=== PATIENT | female | born 1985 | race Caucasian/White ===

== ENCOUNTER 2018-04-16 09:56 | Emergency (ER) | payer MEDICAID, OTHER ==
[2018-04-16 10:10] VITALS: BP 126/75
--- NOTE | 2018-04-16 11:12 | UC ---
Complaint Female HPI - HPI Summary HPI Summary: left flank and right upper quad. pain had a temp of 100. this morning and felt clammy and febrile-- Patient seen at [facility] 2 days ago dx with vaginal yeast and hypokalemia, - History Of Current Complaint Chief Complaint: UCGU Stated Complaint: URINARY ISSUE FEVER Time Seen by Provider: 04/16/18 11:00 Hx Obtained From: Patient Hx Last Menstrual Period: 02/01/18 ?: Yes Onset/Duration: Sudden Onset Timing: Constant Pain Intensity: 3 Pain Scale Used: 0-10 Numeric Aggravating Factor(s): Nothing - Allergies/Home Medications Allergies/Adverse Reactions: Allergies Allergy/AdvReac Type Severity Reaction Status Date / Time carbamazepine [From Tegretol] Allergy Hives Verified 04/16/18 09:58 diazepam [From Valium] Allergy unk Verified 04/16/18 09:59 latex Allergy Rash Verified 04/16/18 09:59 morphine Allergy unk Verified 04/16/18 09:59 phenytoin [From Dilantin] Allergy unk Verified 04/16/18 10:00 Home Medications: Home Medications Enoxaparin(*) [Lovenox(*)] 40 mg SUBCUT Q24HR 04/16/18 [History Confirmed ] PMH/Surg Hx/FS Hx/Imm Hx Previously Healthy: No - Lupus, clotting disorder - Surgical History Surgical History: Yes Surgery Procedure, Year, and Place: APPY-2001. GALLBLADDER-2005. SPHINCTER MUSCLE TO PANCREASE DILATED. TUBAL-2005. TUBAL REVERSAL-2013 - Family History Known Family History: Positive: Hypertension - Social History Occupation: Employed Full-time Lives: With Family Alcohol Use: None Substance Use Type: None Smoking Status (MU): Never Smoked Tobacco Review of Systems Constitutional: Fever, Chills, Fatigue Skin: Negative Eyes: Negative ENT: Negative Respiratory: Negative Cardiovascular: Negative Gastrointestinal: Abdominal Pain Genitourinary: Negative Motor: Negative Neurovascular: Negative Musculoskeletal: Negative Neurological: Negative Psychological: Negative Is Patient Immunocompromised?: No All Other Systems Reviewed And Are Negative: Yes Physical Exam Triage Information Reviewed: Yes Appearance: Ill-Appearing - pale, Pain Distress, Thin Vital Signs: Initial Vital Signs Temp 97.4 F 04/16/18 10:06 Pulse 82 04/16/18 10:06 Resp 18 04/16/18 10:06 BP 126/75 04/16/18 10:06 Pulse Ox 100 04/16/18 10:06 Vital Signs Reviewed: Yes Eye Exam: Other Eyes: Positive: Conjunctiva Clear, Other: - pale ENT Exam: Normal ENT: Positive: Normal ENT inspection, Hearing grossly normal, TMs normal, Uvula midline. Negative: Nasal congestion, Trismus, Muffled voice, Hoarse voice, Dental tenderness, Sinus tenderness Dental Exam: Normal Neck exam: Normal Neck: Positive: Supple, Nontender, No Lymphadenopathy Respiratory Exam: Normal Respiratory: Positive: Chest non-tender, Lungs clear, Normal breath sounds, No respiratory distress, No accessory muscle use Cardiovascular Exam: Normal Cardiovascular: Positive: RRR, No Murmur, Pulses Normal, Brisk Capillary Refill Abdominal Exam: Other Abdomen Description: Positive: No Organomegaly, Soft, CVA Tenderness (L), Other : - RUQ pain. Negative: Distended Bowel Sounds: Positive: Present Musculoskeletal Exam: Normal Musculoskeletal: Positive: Strength Intact, ROM Intact, No Edema Neurological Exam: Normal Neurological: Positive: Alert, Muscle Tone Normal Psychological Exam: Normal Psychological: Positive: Normal Response To Family Skin Exam: Normal Complaint Female Dx - Course Course Of Treatment: will transfer [place] [facility], - Differential Dx/Diagnosis Provider Diagnoses: , RUQ pain, Fever Discharge - Sign-Out/Discharge Documenting (check all that apply): Discharge/Admit/Transfer - Discharge Plan Condition: Fair Disposition: HOME Discharge Disposition Comment: to [facility] Emergency Department for further care Patient Education Materials: (ED), Fever in Adults (ED), Abdominal Pain (ED) Referrals: Gerry Hernández MD [Primary Care Provider] - - Billing Disposition and Condition Condition: FAIR Disposition: Home
== END 2018-04-16 11:20 | disposition home or self-care (01) ==
LOC: UCEAST 09:56
DX: R10.11 Right upper quadrant pain (principal); R50.9 Fever, unspecified; Z33.1 Pregnant state, incidental; M32.9 Systemic lupus erythematosus, unspecified; D68.9 Coagulation defect, unspecified; Z90.49 Acquired absence of other specified parts of digestive tract; Z88.5 Allergy status to narcotic agent; Z88.8 Allergy status to other drugs, medicaments and biological substances; Z91.040 Latex allergy status; Z82.49 Family history of ischemic heart disease and other diseases of the circulatory system
CPT/HCPCS: 81003; 84702; 99211; G0463

== ENCOUNTER 2018-04-16 11:44 | Emergency (ER) | payer OTHER ==
[2018-04-16] MEDS ORDERED: Ondansetron INJ* 2 MG/ML VIAL IV ONE (12:30)
[2018-04-16] MEDS ORDERED: NS 0.9% 1000 ML* 1,000 ML IV ONE (12:30)
[2018-04-16 12:42] LABS: Hematocrit 46 % (35-47); Mean Corpuscular HGB Conc 35 g/dl (31-36); Mean Corpuscular Hemoglobin 33 pg (27-31); Mean Corpuscular Volume 95 fL (80-97); Mean Platelet Volume 7.4 um3 (7.4-10.4); Platelet Count 316 10^3/ul (150-450); Red Blood Count 4.84 10^6/ul (4.0-5.4); Red Cell Distribution Width 13 % (10.5-15); White Blood Count 11.4 10^3/ul (3.5-10.8)
[2018-04-16 12:50] LABS: Urine Appearance Cloudy; Urine Blood Negative (Negative); Urine Color Yellow; Urine Ketones 1+ (Negative); Urine Protein Negative (Negative); Urine Specific Gravity 1.018 (1.010-1.030); Urine Urobilinogen Negative (Negative)
[2018-04-16 13:15] LABS: EGFR Non-African American 121.4 (>60)
[2018-04-16] MEDS ORDERED: Acetaminophen TAB* 325 MG PO ONE (14:05)
--- NOTE | 2018-04-16 15:12 | RAD ---
Indication: Fever. Real-time sonography of the was performed. There is a single intrauterine gestation noted. Estimated crown-rump length is 2.6 cm. Estimated gestational age is 9 weeks 3 days. Estimated date of delivery is November 16, 2018. heart activity is noted at 161 bpm. Amniotic fluid is within normal limits. The right ovary measures 3.3 x 1.2 x 2.6 cm. Left ovary measures 2.6 x 0.8 x 3.0 cm. Doppler interrogation demonstrates flow in both ovaries. IMPRESSION: Single intrauterine gestation with a gestational age of 9 weeks 3 days. Estimated date of delivery is November 16, 2018. heart activity is noted at 161 bpm.
[2018-04-16] MEDS ORDERED: Nitrofurantoin Macrocrystals* 100 MG CAP PO ONE (15:34)
[2018-04-16 15:59] VITALS: BP 112/66
--- NOTE | 2018-04-18 13:21 | ED ---
Progress - Progress Note Progress Note: Patient's culture results are negative for Claire and positive for Gardnerella. Her urine culture is also negative for growth. Pt aware to stop macrobid. She is 9 weeks and was seen in the ED for pelvic pain which is when cx' s were taken. She had been placed on to terconazole by her [facility] over the phone prior to ED without an exam for suspected yeast infection (patient was upset about this and she felt like she had BV and asked for an appointment but was denied - admits to h/o BV and yeast). She reports she stopped taking terconazole because she thought it was causing cramping. I advised that she does not need to continue this as she does not have a yeast infection per her gentinal cx swab here in ED. Her pelvic exam was also unremarkable for yeast infection. We did discuss that she has a bacterial vaginosis (Gardnerella). This may be causing her cramping sx and will be treated with clindamycin vaginally as she is however she reports she is on progesterone to help support her (has had 4 miscarriages). With pt's permission, called [facility] [phone] HAMIDA Reyes'S nurse. Amy is aware of patient's updated cx findings, med adjustments and desire to start clindamycin vaginal for BV - request for clearance from OB. Amy states she will note culture results and will relay message to the OB inquiring if clindamycin is safe to take with progesterone for this patient to treat her BV. She is also aware pt is upset about her care - Amy states "she spoke with a new nurse who doesn't know her". Pt reports she spoke w/ many nurses and the OB himself, all who told her not to worry, no she couldn't have an appt and start terconazole. Inquired if pt is a problem pt - nurse replied no but that she does call frequently w/ concerns and can be emotional - recognizes that she may need more attention given her hx. Awaiting call from [facility] for recommendation re: clindamycin tx. Pt reports she is not bleeding or having contractions at this time. U/S when seen here was normal w/ FHR of 161. She is aware of danger s/sx of when to return to ED. Course/Dx - Diagnoses Provider Diagnoses: Dysuria Discharge - Sign-Out/Discharge Documenting (check all that apply): Post-Discharge Follow Up - Discharge Plan Condition: Stable Disposition: HOME Prescriptions: Nitrofurantoin Monohyd/M-Cryst [Macrobid 100 mg Capsule] 100 mg PO BID #14 cap Patient Education Materials: Dysuria (ED) Referrals: Gerry Hernández MD [Primary Care Provider] - 2 Days Yonathan Purdy MD [Medical Doctor] - 2 Days Additional Instructions: Return to the ED for any new or worsening symptoms. - Billing Disposition and Condition Condition: STABLE Disposition: Home
--- NOTE | 2018-04-19 08:40 | ED ---
Song Andrews Stephanie, scribed for Bandar Schulz MD on 04/16/18 at 1237 . Complex/Multi-Sys Presentation - HPI Summary HPI Summary: The pt is a 32 y/o F presenting to the ED with c/o vaginal discharge that began a few days ago. The pt went to urgent care for concerns of UTI or yeast infection. The pt is 9 weeks . A few days ago when these sx arose she went to [facility] who did US and said baby was fine but that there was a blood clot in her uterus. Pt was placed on meds for yeast infection. Today she developed fevers and abd pain. She reports labial itching. - History Of Current Complaint Chief Complaint: EDAbdPain Time Seen by Provider: 04/16/18 12:18 Hx Obtained From: Patient Onset/Duration: Gradual Onset, Lasting Days, Still Present Timing: Constant Severity Currently: Mild Associated Signs And Symptoms: Positive: Abdominal Pain, Fever, Other - vaginal discharge - Allergies/Home Medications Allergies/Adverse Reactions: Allergies Allergy/AdvReac Type Severity Reaction Status Date / Time carbamazepine [From Tegretol] Allergy Hives Verified 04/16/18 11:53 diazepam [From Valium] Allergy unk Verified 04/16/18 11:53 latex Allergy Rash Verified 04/16/18 11:53 morphine Allergy unk Verified 04/16/18 11:53 phenytoin [From Dilantin] Allergy unk Verified 04/16/18 11:53 PMH/Surg Hx/FS Hx/Imm Hx Sensory History: Denies: Hx Legally Blind EENT History: Denies: Hx Deafness Neurological History: Reports: Hx Seizures - Surgical History Surgery Procedure, Year, and Place: APPY-2001. GALLBLADDER-2005. SPHINCTER MUSCLE TO PANCREASE DILATED. TUBAL-2005. TUBAL REVERSAL-2013 - Immunization History Date of Tetanus Vaccine: PT STATES UNSURE Date of Influenza Vaccine: NONE Infectious Disease History: No Infectious Disease History: Denies: Traveled Outside the [place] in Last 30 Days - Family History Known Family History: Positive: Hypertension - Social History Occupation: Employed Full-time Lives: With Family Alcohol Use: None Hx Substance Use: No Substance Use Type: Reports: None Hx Tobacco Use: No Smoking Status (MU): Never Smoked Tobacco Have You Smoked in the Last Year: No Review of Systems Positive: Fever. Negative: Chills Negative: Erythema Negative: Sore Throat Negative: Chest Pain Negative: Shortness Of Breath, Cough Positive: Abdominal Pain. Negative: Vomiting, Nausea Positive: discharge. Negative: dysuria, hematuria Negative: Myalgia, Edema Negative: Rash Neurological: Negative - dizziness All Other Systems Reviewed And Are Negative: Yes Physical Exam - Summary Physical Exam Summary: Constitutional: Well-developed, Well-nourished, Alert. (-) Distressed Skin: Warm, Dry HENT: Normocephalic; Atraumatic Eyes: Conjunctiva normal Neck: Musculoskeletal ROM normal neck. (-) JVD, (-) Stridor, (-) Tracheal deviation Cardio: Rhythm regular, rate normal, Heart sounds normal; Intact distal pulses; The pedal pulses are 2+ and symmetric. Radial pulses are 2+ and symmetric. (-) Murmur Pulmonary/Chest wall: Effort normal. (-) Respiratory distress, (-) Wheezes, (-) Rales Abd: Soft, suprapubic tenderness, (-) Distension, (-) Guarding, (-) Rebound Musculoskeletal: (-) Edema Lymph: (-) Cervical adenopathy Neuro: Alert, Oriented x3 Psych: Mood and affect Normal Pelvic Exam: Performed with nurse Uyen Gomez present. Positive mild R adnexal tenderness. There is white discharge consistent with yeast infection. No cervical discharge. Triage Information Reviewed: Yes Vital Signs On Initial Exam: Initial Vitals Temp Pulse Resp BP Pulse Ox 97.9 F 80 16 133/75 100 04/16/18 11:49 04/16/18 11:49 04/16/18 11:49 04/16/18 11:49 04/16/18 11:49 Vital Signs Reviewed: Yes Diagnostics - Vital Signs Vital Signs Temp Pulse Resp BP Pulse Ox 04/16/18 11:49 97.9 F 80 16 133/75 100 - Laboratory Result Diagrams: 04/16/18 12:34 04/16/18 12:34 Lab Statement: Any lab studies that have been ordered have been reviewed, and results considered in the medical decision making process. - Additional Comments Diagnostic Additional Comments: US reveals: Single intrauterine gestation with a gestational age of 9 weeks 3 days. Estimated date of delivery is November 16, 2018. heart activity is noted at 161 bpm. ED physician has reviewed this report. Re-Evaluation - Re-Evaluation First Eval Re-Evaluation Time: 14:03 Change: Worse - The pt reports discomfort after urination. Second Eval Re-Evaluation Time: 15:40 Change: Unchanged - ED physician discussed plan of discharge with the pt and the pt understands and agrees. ED physician discussed possibility of miscarriage with the pt and the pt understands. Complex Multi-Symp Course/Dx Course Of Treatment: ED physician discussed possibility of miscarriage with the pt at discharge. - Diagnoses Provider Diagnoses: Dysuria Discharge - Sign-Out/Discharge Documenting (check all that apply): Discharge/Admit/Transfer - Discharge - Discharge Plan Condition: Stable Disposition: HOME Prescriptions: Nitrofurantoin Monohyd/M-Cryst [Macrobid 100 mg Capsule] 100 mg PO BID #14 cap Patient Education Materials: Dysuria (ED) Referrals: Gerry Hernández MD [Primary Care Provider] - 2 Days Yonathan Purdy MD [Medical Doctor] - 2 Days Additional Instructions: Return to the ED for any new or worsening symptoms. The documentation as recorded by the Song moy Stephanie accurately reflects the service I personally performed and the decisions made by , Bandar Schulz MD.
== END 2018-04-16 15:56 | disposition home or self-care (01) ==
LOC: ED 11:44
DX: O26.91 Pregnancy related conditions, unspecified, first trimester (principal); N76.0 Acute vaginitis; R30.0 Dysuria; R50.9 Fever, unspecified; R10.2 Pelvic and perineal pain; Z3A.09 9 weeks gestation of pregnancy; R56.9 Unspecified convulsions; Z88.5 Allergy status to narcotic agent; Z88.8 Allergy status to other drugs, medicaments and biological substances; Z91.040 Latex allergy status; Z90.49 Acquired absence of other specified parts of digestive tract; Z82.49 Family history of ischemic heart disease and other diseases of the circulatory system
CPT/HCPCS: 36415; 76801; 80053; 81003; 81015; 84702; 85027; 87086; 87480; 87491; 87510; 87591; 96374; 99282; A9270-GY

== ENCOUNTER 2018-05-12 17:19 | Emergency (ER) | payer OTHER ==
[2018-05-12] MEDS ORDERED: NS 0.9% 1000 ML* 1,000 ML IV ONE (17:49)
--- NOTE | 2018-05-12 18:02 | ED ---
- HPI Summary HPI Summary: Pt. is a 32 y.o female who presents to the emergency department for lower abdominal pain and bloody vaginal discharge times one day. Patient states she is roughly 14 weeks . A3. She had a confirmed IUP. Also notes she has been having a headache x 3 days. States she has a hx of migraines and headache today is the same as prior h/a. Denies associated symptoms of fever, chills, N/V/D, urinary symptoms. Also notes palpitations. Symptoms are moderate in severity. She has an apt. with her OB tomorrow. No current modifying factors. - History of Current Complaint Chief Complaint: EDAbdPain Stated Complaint: 14WKS PREG/DISCHARGE AND FEELS CONTRACTIONS Time Seen by Provider: 05/12/18 17:35 Hx Obtained From: Patient Pain Intensity: 4 - Assessment Hx Now: Yes Hx Hysterectomy: No - Allergies/Home Medications Allergies/Adverse Reactions: Allergies Allergy/AdvReac Type Severity Reaction Status Date / Time carbamazepine [From Tegretol] Allergy Hives Verified 05/12/18 17:29 diazepam [From Valium] Allergy unk Verified 05/12/18 17:29 latex Allergy Rash Verified 05/12/18 17:29 morphine Allergy unk Verified 05/12/18 17:29 phenytoin [From Dilantin] Allergy unk Verified 05/12/18 17:29 PMH/Surg Hx/FS Hx/Imm Hx Previously Healthy: Yes Sensory History: Denies: Hx Legally Blind, Hx Deafness Opthamlomology History: Denies: Hx Legally Blind Neurological History: Reports: Hx Seizures - Surgical History Surgery Procedure, Year, and Place: APPY-2001. GALLBLADDER-2005. SPHINCTER MUSCLE TO PANCREASE DILATED. TUBAL-2005. TUBAL REVERSAL-2013 - Immunization History Date of Tetanus Vaccine: PT STATES UNSURE Date of Influenza Vaccine: NONE Infectious Disease History: No Infectious Disease History: Denies: Traveled Outside the [place] in Last 30 Days - Family History Known Family History: Positive: Hypertension - Social History Occupation: Employed Full-time Lives: With Family Alcohol Use: None Hx Substance Use: No Substance Use Type: Reports: None Hx Tobacco Use: No Smoking Status (MU): Never Smoked Tobacco Have You Smoked in the Last Year: No Review of Systems Constitutional: Negative Eyes: Negative ENT: Negative Positive: Palpitations. Negative: Chest Pain Respiratory: Negative Negative: Shortness Of Breath Positive: Abdominal Pain. Negative: Vomiting, Nausea Positive: discharge Positive: Headache. Negative: Weakness, Paresthesia, Numbness All Other Systems Reviewed And Are Negative: Yes Physical Exam - Physical Exam Triage Information Reviewed: Yes Vital Signs Reviewed: Yes Appearance: Positive: Well-Appearing - Pt. sitting up in bed in NAD. Appears uncomfortable but nontoxic. present., Well-Nourished Skin: Positive: Warm, Dry Head/Face: Positive: Normal Head/Face Inspection Eyes: Positive: Normal Neck: Positive: Supple Respiratory/Lung Sounds: Positive: Clear to Auscultation, Breath Sounds Present Cardiovascular: Positive: Normal, RRR. Negative: Murmur Abdomen Description: Positive: Other: - appearing. Soft throughout with pain across lower abdomen. No rebound tenderness or guarding. Neurological: Positive: Normal, CN Intact II-III Psychiatric: Positive: Affect/Mood Appropriate Diagnostics - Vital Signs Vital Signs Temp Pulse Resp BP Pulse Ox 05/12/18 17:25 98.7 F 84 18 134/72 99 - Laboratory Result Diagrams: 05/12/18 18:08 05/12/18 18:08 Lab Statement: Any lab studies that have been ordered have been reviewed, and results considered in the medical decision making process. Course/Dx - Course Course Of Treatment: Pt. presenting in second trimester pregancy with vaginal discharge and lower abdominal pain. Afebrile with stable vital signs. Benign abd. exam. Will check basic labs, urine, vaginal cultures. IV fluids given for h /a. Labs show minimual elevation in WBC. CMP unremarkable. Urinalysis shows trace leukocytes and epi cells, will send for culture. Beta HCG 119,465. Bedside u/s performed by u/s [employer] shows a HR of 163, probable subchorionic hematoma. Pelvic exam showed a scant amount of whitish dc, no bleeding. Will wait for cultures to treat. On re-exam pt. is resting comfortably. Advised to rest and increase fluids. Pelvic rest. To f.u with OB tomorrow as scheduled. To return to ER if sxs change or worsen. - Differential Diagnosis/HQI/PQRI: Threatened , Ovarian Cyst, PID, Early - Diagnoses Provider Diagnoses: Second trimester , Abdominal pain during Discharge - Sign-Out/Discharge Documenting (check all that apply): Discharge/Admit/Transfer - Discharge Plan Condition: Good Disposition: HOME Patient Education Materials: Abdominal Pain in (ED) Referrals: Gerry Hernández MD [Primary Care Provider] - Additional Instructions: Follow up with your OB tomorrow as scheduled Increase fluids and rest Pelvic rest Return to ER for increased pain, fever, vomiting, heavy vaginal bleeding or if concerned - Billing Disposition and Condition Condition: GOOD Disposition: Home
[2018-05-12 18:16] LABS: ABS Basophils 0 10^3/ul (0-0.2); ABS Eosinophils 0.1 10^3/ul (0-0.6); ABS Lymphocytes 2.9 10^3/ul (1.0-4.8); ABS Monocytes 0.9 10^3/ul (0-0.8); ABS Neutrophils 7.1 10^3/ul (1.5-7.7); ABS Nucleated RBC 0 10^3/ul; Eosinophil % 1.1 % (0-6); Hematocrit 41 % (35-47); Lymphocyte % 26.4 % (25-47); Mean Corpuscular HGB Conc 34 g/dl (31-36); Mean Corpuscular Hemoglobin 33 pg (27-31); Mean Corpuscular Volume 95 fL (80-97); Mean Platelet Volume 7.7 um3 (7.4-10.4); Nucleated Red Blood Cells % 0; Platelet Count 294 10^3/ul (150-450); Red Blood Count 4.29 10^6/ul (4.00-5.40); Red Cell Distribution Width 13 % (10.5-15); White Blood Count 11.2 10^3/ul (3.5-10.8)
[2018-05-12 18:32] LABS: EGFR Non-African American 126.5 (>60)
[2018-05-12 18:44] LABS: Urine Appearance Cloudy; Urine Blood Negative (Negative); Urine Color Yellow; Urine Ketones Negative (Negative); Urine Protein Negative (Negative); Urine Specific Gravity 1.011 (1.010-1.030); Urine Urobilinogen Negative (Negative)
[2018-05-12 19:42] VITALS: BP 100/66
--- NOTE | 2018-05-14 11:36 | PN ---
Progress Note - Progress Note Date of Service: 05/12/18 Note: Patient was not placed on abx prior to discharge Urine culture final grew group b strep Patient was called at 11:35a to make her aware She states she was already placed on an abx by her OBGYN Keflex was cancelled.
== END 2018-05-12 19:41 | disposition home or self-care (01) ==
LOC: ED 17:19
DX: O26.892 Other specified pregnancy related conditions, second trimester (principal); R10.30 Lower abdominal pain, unspecified; Z3A.14 14 weeks gestation of pregnancy
CPT/HCPCS: 36415; 80053; 81003; 81015; 84702; 85025; 87077; 87086; 87480; 87491; 87510; 87591; 87661; 96360; 99282

== ENCOUNTER → 2018-05-17 | Emergency (ER) | payer OTHER ==
[~2018-05-17] MED LIST: Phenazopyridine TAB* 100 MG PO ONE
[2018-05-17 19:39] LABS: Urine Appearance Clear; Urine Blood Negative (Negative); Urine Color Straw; Urine Ketones Negative (Negative); Urine Protein Negative (Negative); Urine Specific Gravity 1.001 (1.010-1.030); Urine Urobilinogen Negative (Negative)
[2018-05-17 20:08] VITALS: BP 96/78
[2018-05-17 20:15] LABS: ABS Basophils 0 10^3/ul (0-0.2); ABS Eosinophils 0.1 10^3/ul (0-0.6); ABS Lymphocytes 2.8 10^3/ul (1.0-4.8); ABS Neutrophils 7.8 10^3/ul (1.5-7.7); ABS Nucleated RBC 0 10^3/ul; Eosinophil % 0.8 % (0-6); Hematocrit 44 % (35-47); Hemoglobin 15.3 g/dl (12.0-16.0); Lymphocyte % 23.8 % (25-47); Mean Corpuscular HGB Conc 35 g/dl (31-36); Mean Corpuscular Hemoglobin 33 pg (27-31); Mean Corpuscular Volume 94 fL (80-97); Mean Platelet Volume 7.8 um3 (7.4-10.4); Nucleated Red Blood Cells % 0.1; Platelet Count 292 10^3/ul (150-450); Red Blood Count 4.63 10^6/ul (4.00-5.40); Red Cell Distribution Width 13 % (10.5-15); White Blood Count 11.7 10^3/ul (3.5-10.8)
[2018-05-17 20:30] LABS: EGFR Non-African American 129.2 (>60)
--- NOTE | 2018-05-17 21:21 | ED ---
Chelsy Andrews Emily, scribed for Fela Diaz MD on 05/17/18 at 2056 . GI/ HPI - HPI Summary HPI Summary: This patient is a 32 year old A0 F presenting to [facility] accompanied by with a chief complaint of urinary urgency that began 5 days ago. Pt reports that she is 15 weeks . The patient rates the pain 5/10 in severity. Symptoms aggravated by nothing. Symptoms alleviated by nothing. Patient reports dysuria, urinary frequency, and fevers. Pt reports that she was diagnosed with a UTI for these symptoms on 05/12/2018. - History of Current Complaint Chief Complaint: EDUrogenitalProblems Time Seen by Provider: 05/17/18 20:32 Stated Complaint: 4 MONTHS PREG/PAIN WHEN URINATING Hx Obtained From: Patient Hx Last Menstrual Period: 02/01/18 Onset/Duration: Started Days Ago, Still Present Timing: Constant Severity: Moderate Current Severity: Moderate Pain Intensity: 5 Pain Characteristics: Burning Associated Signs and Symptoms: Positive: Other: - Positive dysuria, urinary frequency, and fevers. Aggravating Factor(s): Nothing Alleviating Factor(s): Nothing - Allergy/Home Medications Allergies/Adverse Reactions: Allergies Allergy/AdvReac Type Severity Reaction Status Date / Time carbamazepine [From Tegretol] Allergy Hives Verified 05/17/18 18:26 diazepam [From Valium] Allergy unk Verified 05/17/18 18:26 latex Allergy Rash Verified 05/17/18 18:26 morphine Allergy unk Verified 05/17/18 18:26 phenytoin [From Dilantin] Allergy unk Verified 05/17/18 18:26 PMH/Surg Hx/FS Hx/Imm Hx Previously Healthy: No Sensory History: Denies: Hx Legally Blind, Hx Deafness Opthamlomology History: Denies: Hx Legally Blind Neurological History: Reports: Hx Seizures - Surgical History Surgery Procedure, Year, and Place: APPY-2001. GALLBLADDER-2005. SPHINCTER MUSCLE TO PANCREASE DILATED. TUBAL-2005. TUBAL REVERSAL-2013 - Immunization History Date of Tetanus Vaccine: PT STATES UNSURE Date of Influenza Vaccine: NONE Infectious Disease History: No Infectious Disease History: Denies: Traveled Outside the [place] in Last 30 Days - Family History Known Family History: Positive: Hypertension - Social History Occupation: Employed Full-time Lives: With Family Alcohol Use: None Hx Substance Use: No Substance Use Type: Reports: None Hx Tobacco Use: No Smoking Status (MU): Never Smoked Tobacco Have You Smoked in the Last Year: No Review of Systems Positive: Fever Positive: dysuria, frequency, urgency All Other Systems Reviewed And Are Negative: Yes Physical Exam - Summary Physical Exam Summary: VITAL SIGNS: Reviewed. GENERAL: Patient is a well-developed and nourished female who is lying comfortable in the stretcher. Patient is not in any acute respiratory distress. Hernandez catheter in place with minimal output HEAD AND FACE: No signs of trauma. No ecchymosis, hematomas or skull depressions. No sinus tenderness. EYES: PERRLA, EOMI x 2, No injected conjunctiva, no nystagmus. EARS: Hearing grossly intact. Ear canals and tympanic membranes are within normal limits. MOUTH: Oropharynx within normal limits. NECK: Supple, trachea is midline, no adenopathy, no JVD, no carotid bruit, no c- spine tenderness, neck with full ROM. CHEST: Symmetric, no tenderness at palpation LUNGS: Clear to auscultation bilaterally. No wheezing or crackles. CVS: Regular rate and rhythm, S1 and S2 present, no murmurs or gallops appreciated. ABDOMEN: Soft, non-tender. No signs of distention. No rebound no guarding, and no masses palpated. Bowel sounds are normal. EXTREMITIES: FROM in all major joints, no edema, no cyanosis or clubbing. NEURO: Alert and oriented x 3. No acute neurological deficits. Speech is normal and follows commands. SKIN: Dry and warm Triage Information Reviewed: Yes Vital Signs On Initial Exam: Initial Vitals Temp Pulse Resp BP Pulse Ox 97.3 F 87 20 135/77 99 05/17/18 18:22 05/17/18 18:22 05/17/18 18:22 05/17/18 18:22 05/17/18 18:22 Vital Signs Reviewed: Yes Diagnostics - Vital Signs Vital Signs Temp Pulse Resp BP Pulse Ox 05/17/18 20:07 98.1 F 86 16 96/78 98 05/17/18 18:22 97.3 F 87 20 135/77 99 - Laboratory Lab Results: Lab Results 05/17/18 05/17/18 05/17/18 Range/Units 19:31 20:05 20:06 WBC 11.7 H (3.5-10.8) 10^3/ul RBC 4.63 (4.00-5.40) 10^6/ul Hgb 15.3 (12.0-16.0) g/dl Hct 44 (35-47) % MCV 94 (80-97) fL MCH 33 H (27-31) pg MCHC 35 (31-36) g/dl RDW 13 (10.5-15) % Plt Count 292 (150-450) 10^3/ul MPV 7.8 (7.4-10.4) um3 Neut % (Auto) 66.7 (38-83) % Lymph % (Auto) 23.8 L (25-47) % Perkins % (Auto) 8.4 H (0-7) % Eos % (Auto) 0.8 (0-6) % Baso % (Auto) 0.3 (0-2) % Absolute Neuts (auto) 7.8 H (1.5-7.7) 10^3/ul Absolute Lymphs (auto) 2.8 (1.0-4.8) 10^3/ul Absolute Monos (auto) 1.0 H (0-0.8) 10^3/ul Absolute Eos (auto) 0.1 (0-0.6) 10^3/ul Absolute Basos (auto) 0 (0-0.2) 10^3/ul Absolute Nucleated RBC 0 10^3/ul Nucleated RBC % 0.1 Sodium 132 L (135-145) mmol/L Potassium 3.9 (3.5-5.0) mmol/L Chloride 103 (101-111) mmol/L Carbon Dioxide 23 (22-32) mmol/L Anion Gap 6 (2-11) mmol/L BUN 6 (6-24) mg/dL Creatinine 0.54 (0.51-0.95) mg/dL Est GFR ( Amer) 156.4 (>60) Est GFR (Non-Af Amer) 129.2 (>60) BUN/Creatinine Ratio 11.1 (8-20) Glucose 84 (70-100) mg/dL Lactic Acid (0.5-2.0) mmol/L Calcium 9.1 (8.6-10.3) mg/dL Total Bilirubin 0.40 (0.2-1.0) mg/dL AST 15 (13-39) U/L ALT 14 (7-52) U/L Alkaline Phosphatase 48 (34-104) U/L C-Reactive Protein 1.35 (<8.01) mg/L Total Protein 7.2 (6.4-8.9) g/dL Albumin 3.9 (3.2-5.2) g/dL Globulin 3.3 (2-4) g/dL Albumin/Globulin Ratio 1.2 (1-3) Lipase 25 (11.0-82.0) U/L Urine Color Straw Urine Appearance Clear Urine pH 6.0 (5-9) Ur Specific [place] 1.001 L (1.010-1.030) Urine Protein Negative (Negative) Urine Ketones Negative (Negative) Urine Blood Negative (Negative) Urine Nitrate Negative (Negative) Urine Bilirubin Negative (Negative) Urine Urobilinogen Negative (Negative) Ur Leukocyte Esterase Negative (Negative) Urine Glucose Negative (Negative) 05/17/18 Range/Units 20:06 WBC (3.5-10.8) 10^3/ul RBC (4.00-5.40) 10^6/ul Hgb (12.0-16.0) g/dl Hct (35-47) % MCV (80-97) fL MCH (27-31) pg MCHC (31-36) g/dl RDW (10.5-15) % Plt Count (150-450) 10^3/ul MPV (7.4-10.4) um3 Neut % (Auto) (38-83) % Lymph % (Auto) (25-47) % Perkins % (Auto) (0-7) % Eos % (Auto) (0-6) % Baso % (Auto) (0-2) % Absolute Neuts (auto) (1.5-7.7) 10^3/ul Absolute Lymphs (auto) (1.0-4.8) 10^3/ul Absolute Monos (auto) (0-0.8) 10^3/ul Absolute Eos (auto) (0-0.6) 10^3/ul Absolute Basos (auto) (0-0.2) 10^3/ul Absolute Nucleated RBC 10^3/ul Nucleated RBC % Sodium (135-145) mmol/L Potassium (3.5-5.0) mmol/L Chloride (101-111) mmol/L Carbon Dioxide (22-32) mmol/L Anion Gap (2-11) mmol/L BUN (6-24) mg/dL Creatinine (0.51-0.95) mg/dL Est GFR ( Amer) (>60) Est GFR (Non-Af Amer) (>60) BUN/Creatinine Ratio (8-20) Glucose (70-100) mg/dL Lactic Acid 0.6 (0.5-2.0) mmol/L Calcium (8.6-10.3) mg/dL Total Bilirubin (0.2-1.0) mg/dL AST (13-39) U/L ALT (7-52) U/L Alkaline Phosphatase (34-104) U/L C-Reactive Protein (<8.01) mg/L Total Protein (6.4-8.9) g/dL Albumin (3.2-5.2) g/dL Globulin (2-4) g/dL Albumin/Globulin Ratio (1-3) Lipase (11.0-82.0) U/L Urine Color Urine Appearance Urine pH (5-9) Ur Specific [place] (1.010-1.030) Urine Protein (Negative) Urine Ketones (Negative) Urine Blood (Negative) Urine Nitrate (Negative) Urine Bilirubin (Negative) Urine Urobilinogen (Negative) Ur Leukocyte Esterase (Negative) Urine Glucose (Negative) Result Diagrams: 05/17/18 20:06 05/17/18 20:05 Lab Statement: Any lab studies that have been ordered have been reviewed, and results considered in the medical decision making process. GIGU Course/Dx - Course Course Of Treatment: This patient is a 32 year old A0 F presenting to [facility] accompanied by with a chief complaint of urinary urgency that began 5 days ago. Pt reports that she was diagnosed with a UTI for these symptoms on 05/12/2018. Blood work and UA obtained. In the ED course the patient was given Pyridium. Patient will be discharged with prescription for Pyridium and with follow up from Ob. The patient is agreeable with this plan. - Diagnoses Provider Diagnoses: Dysuria Discharge - Sign-Out/Discharge Documenting (check all that apply): Discharge/Admit/Transfer - Discahrge home - Discharge Plan Condition: Stable Disposition: HOME Prescriptions: Phenazopyridine TAB* [Pyridium 100 mg TAB*] 100 mg PO TID PRN #10 tab PRN Reason: Pain Patient Education Materials: Phenazopyridine (By mouth), Dysuria (ED) Referrals: Gerry Hernández MD [Primary Care Provider] - 3 Days Elo Dunlap MD [Medical Doctor] - 3 Days (Follow up on Sunday05/20/2018) Additional Instructions: RETURN TO THE EMERGENCY DEPARTMENT FOR NEW OR WORSENING SYMPTOMS - Billing Disposition and Condition Condition: STABLE Disposition: Home The documentation as recorded by the Chelsy moy Emily accurately reflects the service I personally performed and the decisions made by , Fela Diaz MD.
--- NOTE | 2018-05-21 16:35 | PN ---
Progress Note - Progress Note Date of Service: 05/17/18 Note: Pt. seen in ER 05/17 for urinary symptoms. She in first trimester of . Urinalysis 05/17 was negative. Urine culture today is growing 10-25k e. coli. I called and spoke with pt. today at 1630 and discussed results. Pt. state she is having dysuria and urgency. Given that pt. is symptomatic and will treat. Will treat with keflex based on culture sensitivity. Rx sent to pharmacy. Advised pt. to call her OB tomorrow for a close f.u apt. Pt. understands and agrees with plan.
== END | disposition home or self-care (01) ==
LOC: ED 18:14
DX: O26.892 Other specified pregnancy related conditions, second trimester (principal); R30.0 Dysuria; R35.0 Frequency of micturition; R50.9 Fever, unspecified; Z3A.15 15 weeks gestation of pregnancy; Z87.440 Personal history of urinary (tract) infections; R56.9 Unspecified convulsions; Z90.49 Acquired absence of other specified parts of digestive tract; Z88.5 Allergy status to narcotic agent; Z88.8 Allergy status to other drugs, medicaments and biological substances; Z91.040 Latex allergy status; Z82.49 Family history of ischemic heart disease and other diseases of the circulatory system
CPT/HCPCS: 36415; 51702; 80053; 81003; 83605; 83690; 85025; 86140; 87077; 87086; 87186; 99282; A9270-GY

== ENCOUNTER 2019-08-24 07:49 | Emergency (ER) | payer BC, OTHER ==
[2019-08-24 08:04] VITALS: BP 140/94
--- NOTE | 2019-08-24 08:25 | ED ---
Lower Extremity - HPI Summary HPI Summary: This pt is a 33 Y/O F presenting to [facility] with a CC of a R ankle injury that occurred [employer] while she was walking outside with her son. She states that she rolled her ankle over her porch after leaving her house. She currently has pain to the lateral aspect that extends from the base of her lateral malleolus up the lateral aspect of her leg. She states that the pain is a 5/10 in severity. She has increased pain with palpitation and ROM. She has no alleviating factors. She has a PMHx of lupus. - History of Current Complaint Chief Complaint: EDExtremityLower Stated Complaint: RT ANKLE INJ PER PT Time Seen by Provider: 08/24/19 08:10 Hx Obtained From: Patient Hx Last Menstrual Period: 02/01/18 Mechanism Of Injury: Fall From A Standing Position Onset of Pain: Immediate Onset/Duration: Still Present Severity Initially: Moderate Severity Currently: Moderate Pain Intensity: 5 Pain Scale Used: 0-10 Numeric Timing: Constant Location: Is Discrete @ - R lateral malleolus up the R side of her LE Associated Signs And Symptoms: Positive: Knee Pain - L knee pain. Negative: Fever Aggravating Factor(s): Movement Alleviating Factor(s): Nothing Able to Bear Weight: Yes - Allergies/Home Medications Allergies/Adverse Reactions: Allergies Allergy/AdvReac Type Severity Reaction Status Date / Time carbamazepine [From Tegretol] Allergy Hives Verified 08/24/19 08:04 diazepam [From Valium] Allergy unk Verified 08/24/19 08:04 latex Allergy Rash Verified 08/24/19 08:04 morphine Allergy unk Verified 08/24/19 08:04 phenytoin [From Dilantin] Allergy unk Verified 08/24/19 08:04 PMH/Surg Hx/FS Hx/Imm Hx Previously Healthy: Yes Endocrine/Hematology History: Reports: Other Endocrine/Hematological Disorders - Hx of Lupus Denies: Hx Diabetes Cardiovascular History: Denies: Hx Syncope Respiratory History: Denies: Hx Asthma Sensory History: Denies: Hx Legally Blind, Hx Deafness Opthamlomology History: Denies: Hx Legally Blind Neurological History: Reports: Hx Seizures - Surgical History Surgical History: Yes Surgery Procedure, Year, and Place: APPY-2001. GALLBLADDER-2005. SPHINCTER MUSCLE TO PANCREASE DILATED. TUBAL-2006. TUBAL REVERSAL-2013 - Immunization History Date of Tetanus Vaccine: PT STATES UNSURE Date of Influenza Vaccine: NONE Immunizations Up to Date: Yes Infectious Disease History: No Infectious Disease History: Denies: Traveled Outside the [place] in Last 30 Days - Family History Known Family History: Positive: Hypertension, Other - lupus - Social History Occupation: Employed Full-time Lives: With Family Alcohol Use: None Hx Substance Use: No Substance Use Type: Reports: None Hx Tobacco Use: No Smoking Status (MU): Never Smoked Tobacco Have You Smoked in the Last Year: No Review of Systems Negative: Fever, Chills Negative: Chest Pain Negative: Shortness Of Breath Negative: Vomiting, Nausea Positive: Other - L knee pain and R lateral malleolus pain that extends up the R leg . Negative: Decreased ROM Skin: Negative - swelling Negative: Headache All Other Systems Reviewed And Are Negative: Yes Physical Exam - Summary Physical Exam Summary: Appearance: Well-appearing, Well-nourished, lying in bed comfortably Skin: Warm, dry, no obvious rash Eyes: sclera anicteric, no conjunctival pallor ENT: mucous membranes moist, pharynx appears normal Neck: Supple, nontender Respiratory: Clear to auscultation, no signs of respiratory distress Cardiovascular: Normal S1, S2. No murmurs. Normal distal pulses in tibial and radial bilaterally. Abdomen: Soft, nontender, normal active bowel sounds present Musculoskeletal: Normal, Strength/ROM Intact, R lateral malleolus and L knee: no swelling, no ecchymosis, no decreased ROM Neurological: A&Ox3, awake and alert, mentation is normal, speech is fluent and appropriate Psychiatric: affect is normal, does not appear anxious or depressed Triage Information Reviewed: Yes Vital Signs On Initial Exam: Initial Vitals Temp Pulse Resp BP Pulse Ox 97.6 F 67 17 140/94 98 08/24/19 08:02 08/24/19 08:02 08/24/19 08:02 08/24/19 08:02 08/24/19 08:02 Vital Signs Reviewed: Yes Procedures - Sedation Patient Received Moderate/Deep Sedation with Procedure: No Diagnostics - Vital Signs Vital Signs Temp Pulse Resp BP Pulse Ox 08/24/19 08:02 97.6 F 67 17 140/94 98 - Laboratory Lab Statement: Any lab studies that have been ordered have been reviewed, and results considered in the medical decision making process. - Radiology Foot X-Ray Radiology Interpretation Completed By: Radiologist Summary of Radiographic Findings: No fracture of the Right Foot is noted. ED physician has reviewed this report. Ankle X-Ray Radiology Interpretation Completed By: Radiologist Summary of Radiographic Findings: No fracture of the right ankle is noted. ED physician has reviewed this report. Lower Extremity Course/Dx - Course Assessment/Plan: Patient is a 33-year-old female who presents to the emergency department with a chief complaint of having right ankle pain. X-ray of the right ankle and right foot negative for acute fracture dislocation. The patient was placed in a gel splint and will be discharged home with follow-up with PCP. I discussed all the findings and test results with the patient. Patient was instructed to return to the emergency room immediately if any of the symptoms return worsens. Plan of care was discussed with the patient and understands and agrees. All questions were answered at patient satisfaction. There were no further complaints or concerns. Lung exam before discharge: CTA B/ L. Good air exchange. No wheezing or crackles heard. CVS: S1 and S2 present. No murmurs appreciated. Patient is alert and oriented x 3. Patient is hemodynamically stable. Patient will be discharged home with follow up PCP in the next 2-3 days - Diagnoses Provider Diagnoses: Right ankle sprain Discharge ED - Sign-Out/Discharge Documenting (check all that apply): Patient Departure - discharge - Discharge Plan Condition: Stable Disposition: HOME Patient Education Materials: Ankle Sprain (ED) Referrals: Gerry Hernández MD [Medical Doctor] - 2 Days Additional Instructions: PLEASE RETURN TO THE EMERGENCY DEPARTMENT FOR ANY NEW OR WORSENING SYMPTOMS. FOLLOW UP WITH YOUR PRIMARY CARE PHYSICIAN IN 1-3 DAYS. - Billing Disposition and Condition Condition: STABLE Disposition: Home - Attestation Statements Document Initiated by Barby: Yes Documenting Scribe: Jackson Durand Provider For Whom Barby is Documenting (Include Credential): Sabino Graff MD Scribe Attestation: Jackson Andrews scribed for Sabino Graff MD on 08/24/19 at 1832. Scribe Documentation Reviewed: Yes Provider Attestation: The documentation as recorded by the Jackson moy accurately reflects the service I personally performed and the decisions made by me, Sabino Graff MD Status of Scribe Document: Viewed
== END 2019-08-24 09:45 | disposition home or self-care (01) ==
LOC: ED 07:49
DX: S93.401A Sprain of unspecified ligament of right ankle, initial encounter (principal); X50.9XXA Other and unspecified overexertion or strenuous movements or postures, initial encounter; Y92.008 Other place in unspecified non-institutional (private) residence as the place of occurrence of the external cause; M32.9 Systemic lupus erythematosus, unspecified; Z88.5 Allergy status to narcotic agent; Z88.8 Allergy status to other drugs, medicaments and biological substances; Z91.040 Latex allergy status
CPT/HCPCS: 99282

== ENCOUNTER 2019-08-25 11:20 | Emergency (ER) | payer BC, OTHER ==
[2019-08-25 11:47] VITALS: BP 125/98
--- NOTE | 2019-08-25 12:17 | UC ---
Skin Complaint HPI - HPI Summary HPI Summary: 33-year-old female comes in with a chief complaint of a metal splinter in her right index finger. This occurred at work just prior to arrival. She is unable to get out. She's not sure of when her last tetanus shot was. Area is minimally tender to palpation. No complaint of of any numbness or weakness. - History of Current Complaint Chief Complaint: UCUpperExtremity Time Seen by Provider: 08/25/19 12:05 Stated Complaint: METAL SLIVER IN FINGER Hx Last Menstrual Period: now Pain Intensity: 0 - Allergy/Home Medications Allergies/Adverse Reactions: Allergies Allergy/AdvReac Type Severity Reaction Status Date / Time carbamazepine [From Tegretol] Allergy Hives Verified 08/25/19 11:48 diazepam [From Valium] Allergy unk Verified 08/25/19 11:48 latex Allergy Rash Verified 08/25/19 11:48 morphine Allergy unk Verified 08/25/19 11:48 phenytoin [From Dilantin] Allergy unk Verified 08/25/19 11:48 PMH/Surg Hx/FS Hx/Imm Hx Previously Healthy: Yes - Surgical History Surgical History: Yes Surgery Procedure, Year, and Place: APPY-2001. GALLBLADDER-2005. SPHINCTER MUSCLE TO PANCREASE DILATED. TUBAL-2005. TUBAL REVERSAL-2013 - Family History Known Family History: Positive: Hypertension, Other - lupus - Social History Alcohol Use: Occasionally Substance Use Type: None Smoking Status (MU): Never Smoked Tobacco Have You Smoked in the Last Year: No Review of Systems All Other Systems Reviewed And Are Negative: Yes Constitutional: Positive: Negative Skin: Positive: Other - SEE HPI Eyes: Positive: Negative ENT: Positive: Negative Respiratory: Positive: Negative Cardiovascular: Positive: Negative Gastrointestinal: Positive: Negative Motor: Positive: Negative Neurovascular: Positive: Negative Musculoskeletal: Positive: Negative Neurological: Positive: Negative Psychological: Positive: Negative Is Patient Immunocompromised?: No Physical Exam Triage Information Reviewed: Yes Appearance: Well-Appearing, No Pain Distress, Well-Nourished Vital Signs: Initial Vital Signs Temp 97.9 F 08/25/19 11:44 Pulse 58 08/25/19 11:44 Resp 16 08/25/19 11:44 BP 125/98 08/25/19 11:44 Pulse Ox 99 08/25/19 11:44 Vital Signs Reviewed: Yes Eye Exam: Normal Eyes: Positive: Conjunctiva Clear Neck: Positive: Supple, Nontender Respiratory: Positive: No respiratory distress Musculoskeletal: Positive: Strength Intact, ROM Intact Neurological: Positive: Alert, Muscle Tone Normal Psychological: Positive: Age Appropriate Behavior Skin: Positive: Other - The right index finger just beneath the skin there is a 3 mm x 1 mm foreign body. Is nontender to palpation there is no erythema is no drainage. Normal capillary refill no sensation deficits. Course/Dx - Course Course Of Treatment: The foreign body in right finger was not given the patient significant amount of pain. There is no erythema no drainage. Discussed the options of numbing the finger and cutting the finger to get the foreign body out or 2 leave alone and let the body take care of it. At this time the patient prefers to not have the foreign body removed. Patient was given a TDAP Here in clinic. Wrote a prescription for Keflex to be used if there is any signs of infection. Patient is to get reevaluated if worse or any questions or concerns. - Diagnoses Provider Diagnosis: Foreign body of right index finger Discharge ED - Sign-Out/Discharge Documenting (check all that apply): Patient Departure All imaging exams completed and their final reports reviewed: No Studies - Discharge Plan Condition: Stable Disposition: HOME Prescriptions: Cephalexin CAP* [Keflex CAP*] 500 mg PO QID #40 cap Patient Education Materials: Soft Tissue Foreign Body (ED) Forms: *Work Release Referrals: Tray Carrillo NP [Primary Care Provider] - Additional Instructions: FOLLOW UP WITH YOUR DOCTOR OR RETURN HERE IF NOT COMPLETELY IMPROVED. GET RECHECKED SOONER IF YOUR CONDITION WORSENS OR ANY QUESTIONS OR CONCERNS. - Billing Disposition and Condition Condition: STABLE Disposition: Home
[2019-08-25] MEDS ORDERED: Tetan/Diph/Pertus SYR(Tdap)* 0.5 ML SYR(BOOSTRIX) use SYR contains LATEX IM ONE (12:24)
== END 2019-08-25 12:38 | disposition home or self-care (01) ==
LOC: UCEAST 11:20
DX: S60.450A Superficial foreign body of right index finger, initial encounter (principal); Z23 Encounter for immunization; Z88.5 Allergy status to narcotic agent; Z88.8 Allergy status to other drugs, medicaments and biological substances; Z91.040 Latex allergy status; X58.XXXA Exposure to other specified factors, initial encounter; Y92.9 Unspecified place or not applicable; Y99.0 Civilian activity done for income or pay
CPT/HCPCS: 90471; 90715; 99212; G0463

== ENCOUNTER 2020-01-08 15:53 | Emergency (ER) | payer OTHER ==
--- OUTSIDE RECORDS SUMMARY | 2020-01-08 16:13 | XMS REPORT | Continuity of Care Document ---
:1985 Author Organization [facility] Support Name Relationship Address Phone CARL QUICK spouse [phone] [facility] [address] [facility] [place] [place] [address] Allergies and Intolerances Code Code Allergy Type Reaction Severity Start End Status System Substance Date Date RXNorm Dilantin Drug allergy Rash Mild Active (disorder) 7051 RXNorm Morphine Propensity Abdominal Moderate Active to adverse pain reactions to drug (disorder) 20291221 RXNorm Tegretol Drug allergy Rash Mild Active (disorder) 20240513 RXNorm Valium Drug allergy Respiratory Severe Active (disorder) arrest 983 RXNorm Penicillins Drug allergy family Unknown Active (disorder) allergy 536 6644852 RXNorm Latex Drug allergy Rash Unknown Active (disorder) 014 5640 RXNorm Ibuprofen Drug allergy Unknown Active (disorder) 017 Medications No data In The System Medications At Time Of Discharge No data In The System Problems Code Code System Problem Name Start Date End Date Status 111008108 SNOMED-CT Acute chest pain 01/10/2018 Active 47991322 SNOMED-CT Chest pain 01/10/2018 Active 07550447 SNOMED-CT Seizure U Active 76639152 SNOMED-CT Urinary tract infectious disease U Active 46932686 SNOMED-CT Migraine U Active 07308629 SNOMED-CT Pancreatitis U Active 28082800 SNOMED-CT Kidney stone U Active 300967021 SNOMED-CT Anemia U Active 64680805 SNOMED-CT Depressive disorder U Active 57711853 SNOMED-CT Anxiety U Active 560047178 SNOMED-CT Panic attack U Active 2313633 SNOMED-CT Arthritis U Active 235485628 SNOMED-CT Inflammatory disease of liver U Active 73591033 SNOMED-CT Gestational diabetes mellitus U Active 949296881 SNOMED-CT Lupus erythematosus U Active 730055715 SNOMED-CT Gastroesophageal reflux disease U Active 12404330 SNOMED-CT Abdominal U Active 507872236 SNOMED-CT Velasquez's palsy U Active 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 SNOMED-CT Seizure disorder U Active 64769065 SNOMED-CT Systemic lupus erythematosus U Active 56960019 SNOMED-CT Pulmonary embolism U Active Procedures Code Code System Procedure Date REVERSAL OF TUBAL LIGATION 10/07/2013 470 ICD-9 APPENDECTOMY U 512 ICD-9 CHOLECYSTECTOMY U TUBAL LIGATION U 66851217 SNOMED CT Laparoscopy U Results Microbiology Results w Susceptibilities Order: CULTURE URINE Specimen Source: Urine Body Site: UrineCultural Observations:Mixed growth consistent with vaginal chelsi [id number] Lab Footnotes:[facility] - [id number] - [address] [place] [address] [place] [id number] Social History Code Code System Social History Description Dates Observed Observation 298413415 SNOMED CT Current Smoking Unknown if ever Status smoked UNK AdministrativeGender Sex Assigned At Unknown Vital Signs No data in the system Goals Section No data in the system Health Concerns No data in the systemEncounter Diagnosis Date Code Code System Diagnosis Status G40.309 ICD10 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 Advance Directives *RHIO - CONSENT IS YES Directive Type 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 Date 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 Supporting Document Name Address Phone No Directive Type 07/07/2016 8:35:09 Not Specified Not Specified Not Specified None No specified [facility] Directive Type Effective Date 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 Supporting Document Name Address Phone No Directive 01/11/2018 Not Specified Not Specified Not Specified Carl Quick Yes Type specified 12:15:00 AM [phone] Encounters Encounter Diagnosis Location Date 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 [facility] 01/01/2020 Family History Relationship: Father Health Problem Age At Onset Notes UNKNOWN Relationship: Mother Health Problem Age At Onset Notes Healthy adult (Well adult) Functional Status No data in the system Immunizations Vaccine Code Code System Vaccine Name Date Status LAST TETANUS 2012 Completed 141 CVX Influenza, seasonal, injectable 2017 Completed Medical Equipment No data in the system Mental Status No data in the system Assessment and Plan Assessments No data in the systemPlan Of Treatment No data in the systemPending Tests No data in the system Hospital Discharge Instructions No data in the system Reason for Visit Reason for Visit [id number] - 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
--- NOTE | 2020-01-08 16:14 | ED ---
HPI Chest Pain - HPI Summary HPI Summary: 34 year old F arriving via private car to [facility] accompanied by complains of left sided chest pain with associated shortness of breath x1 hour. Patient denies swelling in bilateral lower extremities. The patient rates the pain 8/10 in severity. Symptoms aggravated by nothing. Symptoms alleviated by nothing. Medications reviewed. Allergies noted. Home Medications Medication Instructions Recorded Confirmed Type NK [No Home Medications Reported] 01/08/20 01/08/20 History - History of Current Complaint Time Seen by Provider: 01/08/20 16:13 Hx Obtained From: Patient Onset/Duration: Started Hours Ago - 1, Still Present Timing: Constant, Lasting Hours - 1 Current Severity: Severe Pain Intensity: 8 Pain Scale Used: 0-10 Numeric Aggravating Factor(s): Nothing Alleviating Factor(s): Nothing Associated Signs and Symptoms: Positive: Shortness of Breath. Negative: Swelling - Allergy/Home Medications Allergies/Adverse Reactions: Allergies Allergy/AdvReac Type Severity Reaction Status Date / Time carbamazepine [From Tegretol] Allergy Hives Verified 01/08/20 16:19 diazepam [From Valium] Allergy unk Verified 01/08/20 16:19 latex Allergy Rash Verified 01/08/20 16:19 morphine Allergy unk Verified 01/08/20 16:19 phenytoin [From Dilantin] Allergy unk Verified 01/08/20 16:19 Home Medications: Home Medications NK [No Home Medications Reported] 01/08/20 [History Confirmed 01/08/20] PMH/Surg Hx/FS Hx/Imm Hx Endocrine/Hematology History: Reports: Other Endocrine/Hematological Disorders - Hx of Lupus Denies: Hx Diabetes Cardiovascular History: Denies: Hx Syncope Respiratory History: Denies: Hx Asthma Neurological History: Reports: Hx Seizures - Surgical History Surgery Procedure, Year, and Place: APPY-2001. GALLBLADDER-2005. SPHINCTER MUSCLE TO PANCREASE DILATED. TUBAL-2005. TUBAL REVERSAL-2013 - Immunization History Date of Tetanus Vaccine: PT [place] UNSURE Date of Influenza Vaccine: NONE Infectious Disease History: Denies: Traveled Outside the [place] in Last 30 Days - Family History Known Family History: Positive: Hypertension, Other - lupus - Social History Alcohol Use: Occasionally Hx Substance Use: No Substance Use Type: Reports: None Hx Tobacco Use: No Smoking Status (MU): Never Smoked Tobacco Have You Smoked in the Last Year: No Review of Systems Positive: Chest Pain Positive: Shortness Of Breath Negative: Edema All Other Systems Reviewed And Are Negative: Yes Physical Exam - Summary Physical Exam Summary: Appearance: The patient is well-nourished in no acute distress and in no acute pain. Skin: The skin is warm and dry, and skin color reflects adequate perfusion. HEENT: The head is normocephalic and atraumatic. The pupils are equal and reactive. The conjunctivae are clear and without drainage. Nares are patent and without drainage. Mouth reveals moist mucous membranes, and the throat is without erythema and exudate. The external ears are intact. The ear canals are patent and without drainage. The tympanic membranes are intact. Neck: The neck is supple with full range of motion and non-tender. There are no carotid bruits. There is no neck vein distension. Respiratory: Chest is non-tender. Lungs are clear to auscultation and breath sounds are symmetrical and equal. Cardiovascular: Heart is regular rate and rhythm. There is no murmur or rub auscultated. There is no peripheral edema and pulses are symmetrical and equal. Abdomen: The abdomen is soft and non-tender. There are normal bowel sounds heard in all four quadrants and there is no organomegaly palpated. Musculoskeletal: There is no back tenderness noted. Extremities are non-tender with full range of motion. There is good capillary refill. There is no peripheral edema or calf tenderness elicited. Neurological: Patient is alert and oriented to person, place and time. The patient has symmetrical motor strength in all four extremities. Cranial nerves are grossly intact. Deep tendon reflexes are symmetrical and equal in all four extremities. Psychiatric: The patient has an appropriate affect and does not exhibit any anxiety or depression. Triage Information Reviewed: Yes Vital Signs Reviewed: Yes Procedures - Sedation Patient Received Moderate/Deep Sedation with Procedure: No Diagnostics - Laboratory Result Diagrams: 01/08/20 17:54 01/08/20 17:54 Lab Statement: Any lab studies that have been ordered have been reviewed, and results considered in the medical decision making process. - Radiology CXR Radiology Interpretation Completed By: Radiologist - IMPRESSION: #. No acute pulmonary or cardiac process evident. ED physician has reviewed this imaging report. - EKG 1601 Cardiac Rate: NL - 81 BPM EKG Rhythm: Sinus Rhythm ST Segment: Normal Ectopy: None Summary of EKG Findings: ED physician has reviewed and interpreted this EKG 1912 Cardiac Rate: NL - 76 BPM EKG Rhythm: Sinus Rhythm ST Segment: Normal Ectopy: None Summary of EKG Findings: ED physician has reviewed and interpreted this EKG Re-Evaluation - Re-Evaluation First Eval Re-Evaluation Time: 21:49 Comment: second troponin 0.00. patient is agreeable to discharge Chest Pain Course/Dx - Course Course Of Treatment: Ms. Quick was nontoxic in appearance with stable vitals. She was complaining of left-sided chest pain and was kept on the monitor while she was evaluated with EKG, chest x-ray and labs including a delayed troponin and d-dimer. They're all normal and she did improve while she was here. She has a recent diagnosis of influenza but there is no evidence for secondary bacterial infection. - Diagnoses Provider Diagnoses: Chest pain, Influenza Discharge ED - Sign-Out/Discharge Documenting (check all that apply): Patient Departure - Discharge Plan Condition: Stable Disposition: HOME Patient Education Materials: Chest Pain (ED), Influenza (ED) Referrals: Tray Carrillo NP [Primary Care Provider] - 2 Days Additional Instructions: Follow up with your primary care provider in 2-3 days. Return to the Emergency Department for new or worsening symptoms. - Billing Disposition and Condition Condition: STABLE Disposition: Home - Attestation Statements Document Initiated by Barby: Yes Documenting Scribe: Rubi Cary Provider For Whom Barby is Documenting (Include Credential): Alexander Berry MD Scribe Attestation: Rubi Andrews, scribed for Alexander Berry MD on 01/08/20 at 2151. Scribe Documentation Reviewed: Yes Provider Attestation: The documentation as recorded by the sharriibRubi parker accurately reflects the service I personally performed and the decisions made by me, Alexander Berry MD Status of Scribe Document: Viewed
[2020-01-08 18:01] LABS: ABS Basophils 0.1 10^3/ul (0-0.2); ABS Eosinophils 0.3 10^3/ul (0-0.6); ABS Lymphocytes 4.4 10^3/ul (1.0-4.8); ABS Monocytes 0.6 10^3/ul (0-0.8); ABS Neutrophils 3.8 10^3/ul (1.5-7.7); Eosinophil % 2.8 %; Hematocrit 46 % (35-47); Lymphocyte % 48.1 %; Mean Corpuscular HGB Conc 35 g/dL (31-36); Mean Corpuscular Hemoglobin 32 pg (27-31); Mean Corpuscular Volume 92 fL (80-97); Mean Platelet Volume 8.1 fL (7.4-10.4); Nucleated Red Blood Cells % 0.3; Platelet Count 319 10^3/uL (150-450); Red Blood Count 4.98 10^6 /uL (3.70-4.87); Red Cell Distribution Width 13 % (10-15); White Blood Count 9.2 10^3/uL (3.5-10.8)
[2020-01-08 18:22] LABS: Albumin 4.6 g/dL (3.2-5.2); Albumin/Globulin Ratio 1.6 (1-3); BUN/Creatinine Ratio 26.8 (8-20); Calcium 9.3 mg/dL (8.6-10.3); EGFR African American 148.2 (>60); EGFR Non-African American 122.5 (>60); Globulin 2.9 g/dL (2-4); Potassium 3.8 mmol/L (3.5-5.0); Total Bilirubin 0.4 mg/dL (0.2-1.0); Total Protein 7.5 g/dL (6.4-8.9)
[2020-01-08 22:01] VITALS: BP 126/72
== END 2020-01-08 21:59 | disposition home or self-care (01) ==
LOC: ED 16:08
DX: J11.1 Influenza due to unidentified influenza virus with other respiratory manifestations (principal); R07.9 Chest pain, unspecified; R06.02 Shortness of breath; M32.10 Systemic lupus erythematosus, organ or system involvement unspecified; Z88.6 Allergy status to analgesic agent
CPT/HCPCS: 36415; 71046; 80053; 83605; 84484; 85025; 85379; 93005; 99283

== ENCOUNTER 2020-01-16 10:21 | Emergency (ER) | payer BC, OTHER ==
--- OUTSIDE RECORDS SUMMARY | 2020-01-16 10:28 | XMS REPORT | Continuity of Care Document ---
:1985 Author Organization [facility] Support Name Relationship Address Phone CARL QUIKC spouse [phone] [facility] [address] [place] [address] Allergies and Intolerances Code Code Allergy Type [...] Drug allergy family Unknown Active (disorder) allergy 275 0455876 RXNorm Latex Drug allergy Rash Unknown Active (disorder) 014 5640 RXNorm Ibuprofen Drug allergy Unknown Active (disorder) 017 Medications Patient Not On Self-Medication Medications At Time Of Discharge Patient Not On Self-Medication Problems Code Code System Problem Name Start Date End Date Status 001734828 SNOMED-CT Acute chest pain 01/10/2018 Active 33708517 SNOMED-CT Chest pain 01/10/2018 Active 57233285 SNOMED-CT Seizure U Active 24116808 SNOMED-CT Urinary tract infectious disease U Active 26520268 SNOMED-CT Migraine U Active 21294823 SNOMED-CT Pancreatitis U Active 79843932 SNOMED-CT Kidney stone U Active 577412723 SNOMED-CT Anemia U Active 07829989 SNOMED-CT Depressive disorder U Active 21156294 SNOMED-CT Anxiety U Active 216209495 SNOMED-CT Panic attack U Active 0381248 SNOMED-CT Arthritis U Active 325327822 SNOMED-CT Inflammatory disease of liver U Active 85496485 SNOMED-CT Gestational diabetes mellitus U Active 817641114 SNOMED-CT Lupus erythematosus U Active 015795476 SNOMED-CT Gastroesophageal reflux disease U Active 45776929 SNOMED-CT Abdominal U Active 788879332 SNOMED-CT Velasquez's palsy U Active 537392224 SNOMED-CT Seizure disorder U Active 44037741 SNOMED-CT Systemic lupus erythematosus U Active 70699552 SNOMED-CT Pulmonary embolism U Active Procedures Code Code System Procedure Date REVERSAL OF TUBAL LIGATION 10/07/2013 470 ICD-9 APPENDECTOMY U 512 ICD-9 CHOLECYSTECTOMY U TUBAL LIGATION U 74990196 SNOMED CT Laparoscopy U Results No data in the system Social History Code Code System Social History Observation Description Dates Observed 781246470 SNOMED CT Current Smoking Status Never smoker UNK AdministrativeGender Sex Assigned At Unknown Vital Signs Code Code System Vitals Value Date 8310-5 INC Body Temperature 98.3 [degF] 01/09/2020 8865-8 LOINC Pulse Rate 76 {beats}/min 01/09/2020 9279-1 INC Respiratory Rate 16 /min 01/09/2020 64592-1 INC O2% BldC Oximetry 98 % 01/09/2020 8480-6 LOINC BP Systolic 117 mm[Hg] 01/09/2020 8462-4 LOINC BP Diastolic 83 mm[Hg] 01/09/2020 8302-2 LOINC Height 59 [in_i] 01/09/2020 60761-2 LOINC Weight 67 kg 01/09/2020 3140-1 LOINC Body surface area Derived from formula 1.62 m2 01/09/2020 49156-8 INC BMI (Body Mass Index) 30.1 kg/m2 01/09/2020 Goals Section No data in the system Health Concerns No data in the systemEncounter Diagnosis Date Code Code System Diagnosis Status Z02.1 ICD10 ENCOUNTER FOR PRE-EMPLOYMENT EXAM Active Advance Directives *RHIO - CONSENT IS YES Directive Type 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 Date 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 Supporting Document Name Address Phone No Directive Type 07/07/2016 8:35:09 Not Specified Not Specified Not Specified None No specified [facility] Directive Type Effective Date 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 Supporting Document Name Address Phone No Directive 01/11/2018 Not Specified Not Specified Not Specified Carl Quick Yes Type specified 12:15:00 AM [phone] Encounters Encounter Diagnosis Location Date ENCOUNTER FOR PRE-EMPLOYMENT EXAM [facility] 01/09/2020 Family History Relationship: Father Health Problem Age At Onset Notes UNKNOWN Relationship: Mother Health Problem Age At Onset Notes Healthy adult (Well adult) Functional Status Code Functional Condition Code System Date Status Independent adls SNOMED CT 01/09/2020 Active Appears well nourished/hydrated SNOMED CT 01/09/2020 Active Immunizations Vaccine Code Code System Vaccine Name Date Status LAST TETANUS 2012 Completed 141 CVX Influenza, seasonal, injectable 2017 Completed Medical Equipment No data in the system Mental Status Code Cognitive Condition Code System Date Status Perrl SNOMED CT 01/09/2020 Active Oriented x [address] 01/09/2020 Active No acute distress SNOMED CT 01/09/[address] 01/09/2020 Active Assessment and Plan Assessments No data in the systemPlan Of Treatment No data in the systemPending Tests No data in the system Hospital Discharge Instructions No data in the system Reason for Visit Reason for Visit [facility] Physical
--- OUTSIDE RECORDS SUMMARY | 2020-01-16 10:28 | XMS REPORT | Continuity of Care Document ---
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 [phone] Medicine Problems Active Problems Provider Date Atypical squamous cells of undetermined Karen Tineo CNM Onset: 2015 significance on cervical Papanicolaou smear Pelvic and perineal pain Leighton Harding MD Onset: 12/12/2016 Adjustment disorder with mixed emotional Leighton Harding MD Onset: 2016 features Gynecologic examination Lieghton Harding MD Onset: 06/13/2017 Right lower quadrant pain Leighton Harding MD Onset: 06/13/2017 Light and infrequent menstruation Leighton Harding MD Onset: 06/13/2017 Galactorrhea not associated with childbirth Leighton Harding MD Onset: 06/13 Cyst of right ovary Leighton Harding MD Onset: 06/29/2017 Social History Type Date Description Comments Sex Unknown Tobacco Use Start: Unknown Never Smoked Cigarettes Smokeless Tobacco Never Used Smokeless Tobacco ETOH Use Rarely consumes alcohol Tobacco Use Start: Unknown Patient has never smoked Recreational Drug Use Denies Drug Use Smoking Status Reviewed: 03/21/18 Patient has never smoked FEMI: 11/15/2018 Estimated Date of Based on 1st Delivery Ultrasound FEMI: 12/17/2014 Estimated Date of Based on Final FEMI Delivery Allergies, Adverse Reactions, Alerts Active Allergies Reaction Severity Comments Date Valium Rash,Stopped Breathing After 09/02/2008 Injection,During A Seizure Dilantin Rash 09/02/2008 Tegretol hives 12/23/2010 Latex Contact dermatitis 05/26/2014 Morphine Stomach cramps 01/08/2017 Amoxicillin 05/21/2017 Medications Active Medications SIG Qnty Indications Ordering Date Provider Enoxaparin Sodium Administer SQ 12ml Leighton 04/03/2018 injection daily MD Mehdi 40mg/0.4ML Solution Gummy 1 bid Unknown 03/21/2018 Vitamin OTC Crinone insert 1 60units Leighton 03/21/2018 8% Gel applicator full to MD Mehdi vaginal area nightly. Vitamin E apply to skin as 1gm N64.4 Jose Medina, 01/29/2018 needed for breast M.D. 58992Nfpv/60GM Cream pain Aspirin Childrens 1 by mouth every Unknown day 81mg Chewtabs Medications Administered in Office Medication SIG Qnty Indications Ordering Provider Date Injection Ketorolac KRYS Kraus 06/23/2019 Tromethamine Per 15 MG (Toradol) Injection Therapeutic/Prophylactic/Diag KRYS Kraus 06/23/2019 nostic Inj(Subcu/Im) (Specify Drug) Injection Tashia Anaya JR, M.D. 05/09/2016 Betamethasone Sodium Phosphate, Per 6 MG Injection Betamethasone Acetate Alonso Anaya JR, M.D. 03/30/2015 Betamethasone Sodium Phosphate, Per 6 MG Injection Immunizations CPT Code Status Date Vaccine Lot # [id number] Given 09/28/2014 Tetanus, Diphtheria Toxoids/Acellular Pertussis [id number] Vaccine 7 Or > Vital Signs Date Vital Result Comment 04/03/2018 1:59pm Weight 130.00 lb Weight 58.968 kg BMI (Body Mass Index) 27.6 kg/m2 BP Systolic 110 mmHg BP Diastolic 64 mmHg Height 57.50 inches 4'9.50" Height in cm's 146.1 cm Last Menstrual Period 6492599 8 Parity 3 03/21/2018 12:17pm Weight 129.00 lb Weight 58.514 kg BMI (Body Mass Index) 27.4 kg/m2 BP Systolic 120 mmHg BP Diastolic 70 mmHg Height 57.50 inches 4'9.50" Height in cm's 146.1 cm Last Menstrual Period 7850938 light 8 Parity 3 Results Description No Information Available Procedures Date Code Description Status 11/12/2008 75303683 Colonoscopy Completed Medical Devices Description No Information Available Encounters Type Date Location Provider Dx Diagnosis Office Visit 01/01/2020 1:[facility] R30.0 Dysuria R35.0 Frequency of micturition R39.15 Urgency of urination R10.2 Pelvic and perineal pain Assessments Date Code Description Provider 01/01/2020 R30.0 Dysuria Janet Pflug PA 01/01/2020 R35.0 Frequency of micturition Janet Pflug, PA 01/01/2020 R39.15 Urgency of urination Janet Pflug, PA 01/01/2020 R10.2 Pelvic and perineal pain Janet Pflug, PA Plan of Treatment No Information Available Functional Status Functional Condition Comment Date Status Glasses Active Mental Status Description No Information Available Referrals Description No Information Available
--- OUTSIDE RECORDS SUMMARY | 2020-01-16 10:28 | XMS REPORT | Continuity of Care Document ---
:1985 Author Organization [facility] Support Name Relationship Address Phone CARL QUICK spouse [address] [place] [address] Allergies and Intolerances Code Code Allergy Type [...] Drug allergy family Unknown Active (disorder) allergy [phone] [id number] RXNorm Latex Drug allergy Rash Unknown Active (disorder) 014 5640 RXNorm Ibuprofen Drug allergy Unknown Active (disorder) 017 Medications Patient Not On Self-Medication Medications At Time Of Discharge Patient Not On Self-Medication Problems Code Code System Problem Name Start Date End Date Status 344804807 SNOMED-CT Acute chest pain 01/10/2018 Active 75200566 SNOMED-CT Chest pain 01/10/2018 Active 08972856 SNOMED-CT Seizure U Active 80136961 SNOMED-CT Urinary tract infectious disease U Active 84503458 SNOMED-CT Migraine U Active 65211899 SNOMED-CT Pancreatitis U Active 44063149 SNOMED-CT Kidney stone U Active 102987185 SNOMED-CT Anemia U Active 82162920 SNOMED-CT Depressive disorder U Active 43933773 SNOMED-CT Anxiety U Active 485122654 SNOMED-CT Panic attack U Active 7889340 SNOMED-CT Arthritis U Active 659241571 SNOMED-CT Inflammatory disease of liver U Active 63858357 SNOMED-CT Gestational diabetes mellitus U Active 558179440 SNOMED-CT Lupus erythematosus U Active 803625163 SNOMED-CT Gastroesophageal reflux disease U Active 60702222 SNOMED-CT Abdominal U Active 603846410 SNOMED-CT 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 SNOMED-CT Seizure disorder U Active 50232492 SNOMED-CT Systemic lupus erythematosus U Active 94539054 SNOMED-CT Pulmonary embolism U Active Procedures Code Code System Procedure Date REVERSAL OF TUBAL LIGATION 10/07/2013 470 ICD-9 APPENDECTOMY U 512 ICD-9 CHOLECYSTECTOMY U TUBAL LIGATION U 29874349 SNOMED CT Laparoscopy U Results Laboratory Results Order: CBC Specimen Source: Body Site: Legend: (G,H) = High, (GG,HH,CH,#H) = Above High Threshold, (#,L) = Low, (##,CL, #L,LL) = Below Low Threshold, (C,CC,CA,#A,A) = Abnormal LOINC Test Result Flag Range Units Date 1WBC 7.6 4.8-10.8 K/uL 01/10/2020 08:07 1RBC 5.00 4.20-5.40 M/uL 01/10/2020 08:07 1HEMOGLOBIN 16.1 H 12.0-16.0 gm/dL 01/10/2020 08:07 1HEMATOCRIT 48.1 H 36.0-48.0 % 01/10/2020 08:07 1MCV 96.1 80.0-100.0 fL 01/10/2020 08:07 1MCHC 33.6 30.0-36.5 % 01/10/2020 08:07 1MCH 32.3 27.0-34.0 pg 01/10/2020 08:07 1RDW 11.8 11.0-15.0 % 01/10/2020 08:07 1PLATELET 321 130-450 K/uL 01/10/2020 08:07 1MPV 7.7 6.0-12.0 fL 01/10/2020 08:07 Performing Lab Footnotes:[facility] - [id number] - [address] [place] [address] [place] Order: FSH/LH Specimen Source: Body Site: Legend: (G,H) = High, (GG,HH, CH,#H) = Above High Threshold, (#,L) = Low, (##,CL,#L,LL) = Below Low Threshold , (C,CC,CA,#A,A) = Abnormal LOINC Test Result Flag Range Units Date 1FSH 10.5 mIU/ml 01/10/2020 08:07 1FSH Reference Range: Male 0.7 - 10.8 Females, Menstruating Follicular Phase 2.3 - 12.6 Mid cycle Peak 5.2 - 17.5 Luteal Phase 1.7 - 12.9 Females, Postmenapausal Menopausal Hormone Therapy (MHT) 5.9 - 72.8 NOT on MHT 12.7 - 132.2 1LH 39.8 mIU/ml 01/10/2020 08:07 1LH Reference Range: Male 1.2 - 10.6 Females, Menstruating Follicular Phase 1.9 - 26.2 Mid cycle Peak 22.8 - 76.1 Luteal Phase 0.6 - 16.6 Females, Postmenapausal Menopausal Hormone Therapy (MHT) 1.1 - 52.4 NOT on MHT 8.6 - 61.8 Performing Lab Footnotes:[facility] - [id number] - [address] [place] [address] [place] Order: GLUCOSE TOLERANCE Specimen Source: Body Site: Legend: (G,H) = High, (GG,HH,CH,#H) = Above High Threshold, (#,L) = Low, (##,CL,#L,LL) = Below Low Threshold, (C,CC,CA,#A,A) = Abnormal LOINC Test Result Flag Range Units Date 1GLUCOSE FASTING 94 70-100 mg/dL 01/10/2020 08:07 1GLUCOSE 1 HOUR 150 120-170 mg/dL 01/10/2020 08:07 1GLUCOSE 2 HOUR 154 H 70-120 mg/dL 01/10/2020 08:07 Performing Lab Footnotes:[facility] - [id number] [place] [address] [place] LIAOOMBon Order: INSULIN Specimen Source: Body Site: Legend: (G,H) = High, (GG,HH ,CH,#H) = Above High Threshold, (#,L) = Low, (##,CL,#L,LL) = Below Low Threshold , (C,CC,CA,#A,A) = Abnormal LOINC Test Result Flag Range Units Date 1INSULIN 8.6 4.8-21.7 mU/L 01/10/2020 08:07 Performing Lab Footnotes:[facility] - [id number] - [address] [place] [address] [place] LIAOOMD1 Order: LIPID PANEL Specimen Source: Body Site: Legend: (G,H) = High, ( GG,HH,CH,#H) = Above High Threshold, (#,L) = Low, (##,CL,#L,LL) = Below Low Threshold, (C,CC,CA,#A,A) = Abnormal LOINC Test Result Flag Range Units Date 1CHOLESTEROL 207 H 120-200 mg/dL 01/10/2020 08:07 1TRIGLYCERIDES 111 0-149 mg/dL 01/10/2020 08:07 1HDL CHOLESTEROL 29 L 40-60 mg/dL 01/10/2020 08:07 1CHOL/HDL RATIO 7.1 H <=4.4 01/10/2020 08:07 Interpretive Reyna: 1Cholesterol/HDL Ratio Interpretation Risk : 1/2 Avg Avg 2x Avg 3x Avg Male : 3.43 4.97 9.50 23.99 Female : 3.27 4.44 7.05 11.04 1LDL DIRECT 179 H 0-99 mg/dL 01/10/2020 08:07 1VLDL CALCULATED 22 01/10/2020 08:07 Performing Lab Footnotes:[facility] - [id number] - [address] [place] [address] [place] JOSHD1 Order: PREG HCG QUANT BLOOD Specimen Source: Body Site: Legend: (G,H) = High, (GG,HH,CH,#H) = Above High Threshold, (#,L) = Low, (##,CL,#L,LL) = Below Low Threshold, (C,CC,CA,#A,A) = Abnormal LOINC Test Result Flag Range Units Date 1BHCG TOTAL <2 <=5 mIU/mL 01/10/2020 08:07 1Approx Gest Age Approx BHCG Range Non- <3 1-2 Weeks 50-500 2-3 Weeks 100-5,000 3-4 Weeks 500-10,000 4-5 Weeks 1,000-50,000 5-6 Weeks 10,000-100,000 6-8 Weeks 15,000- 200,000 2-3 Months 5,000-200,000 2nd Trimester 3,000-50,000 3rd Trimester 1,000-50,000 Performing Lab Footnotes:[facility] - [id number] - [address] [place] [address] [place] Order: PROLACTIN Specimen Source: Body Site: Legend: (G,H) = High, (GG, HH,CH,#H) = Above High Threshold, (#,L) = Low, (##,CL,#L,LL) = Below Low Threshold, (C,CC,CA,#A,A) = Abnormal LOINC Test Result Flag Range Units Date 1PROLACTIN 19.6 ng/mL 01/10/2020 08:07 1Males 13.0-19.0 ng/mL Females Non- 2.2-28.0 ng/mL 1.8-347.6 ng/mL Postmenopausal 0.7-31.5 ng/mL Performing Lab Footnotes:[facility] - [id number] - [address] [place] [address] [place] LI Reference Laboratory Results Order: 17OH PROGESTERONE [SO] Specimen Source: Body Site:Order Result Comment:Specimen Comment: Test(s) 400427-11-AC Progesterone LCMSSpecimen Comment: was developed and its performance characteristics determinedSpecimen Comment: by [facility]. It has not been cleared or approved by the FoodSpecimen Comment: and Drug Administration. LOINC Code Test Result Flag Range Units Date 1668-3 117-Hydroxyprogestero 97 ng/dL 01/10/2020 8:07:00 AM ne Note: Adult Female Follicular 15 - 70 Luteal 35 - 290 Performing Lab Footnotes:[facility] [place] - [address] [facility] [place] [id number] SHIV MCLEAN Order: DHEA SULFATE @ [SO] Specimen Source: Body Site: LOINC Code Test Result Flag Range Units Date 2191-5 1Dehydroepiandrostero 130.1 57.3-279.2 ug/dL 01/10/2020 8:07:00 ne sulfate AM Performing Lab Footnotes:[facility] - [address] [place], [place] [id number] MARITZA B REYES1 Order: TESTO LC, FR +TOT FEMALE/CHILD [SO] Specimen Source: Body Site: Order Result Comment:Specimen Comment: Test(s) 589670-Wsjofesibsev, Total, LC/ MSSpecimen Comment: was developed and its performance characteristics determinedSpecimen Comment: by [facility]. It has not been cleared or approved by the FoodSpecimen Comment: and Drug Administration. LOINC Code Test Result Flag Range Units Date 2986-8 1Testosterone 37.8 10.0-55.0 ng/dL 01/10/2020 8:07:00 AM 2991-8 1Testosterone.free 2.9 0.0-4.2 pg/mL 01/10/2020 8:07:00 AM Performing Lab Footnotes:[facility] - [address] [place], [place] [id number] SHIV [id number] SEAN - [address] [place], [place] [id number] MARITZA Rinaldi REYES1 Social History Code Code System Social History Observation Description Dates Observed 926871248 SNOMED CT Current Smoking Status Never smoker UNK AdministrativeGender Sex Assigned At Unknown Vital Signs No data in the system Goals Section No data in the system Health Concerns No data in the systemEncounter Diagnosis Date Code Code System Diagnosis Status N92.5 ICD10 OTHER SPEC IRREGULAR MENSTRUATION Active Advance Directives *RHIO - CONSENT IS YES Directive Type Effective Date Floor Layer Apprentice Notes Supporting Document Name Address Phone No Directive Type 07/07/2016 8:35:09 Not Specified Not Specified Not Specified None No specified [facility] Directive Type Effective Date Floor Layer Apprentice Notes Supporting Document Name Address Phone No Directive 01/11/2018 Not Specified Not Specified Not Specified Carl Quick Yes Type specified 12:15:00 AM [phone] Encounters Encounter Diagnosis Location Date OTHER SPEC IRREGULAR MENSTRUATION [facility] 01/10/2020 Family History Relationship: Father Health Problem Age [...] data in the system Reason for Visit No data in the system
--- OUTSIDE RECORDS SUMMARY | 2020-01-16 10:28 | XMS REPORT | Continuity of Care Document ---
:1985 External Reference #:[id number] Author Name Sacha Cuadra M.D. (transmitted by agent of provider Kristi Venegas) Address [address] [place] [phone] Care Team Providers Name Role Phone Gerry Hernández MD - Internal Care Team Information Flight Service Specialist [phone] Medicine Problems Active Problems Provider Date Atypical squamous cells of undetermined Karen Tineo CNM Onset: 2015 significance on cervical Papanicolaou smear Pelvic and perineal pain Leighton Harding MD Onset: 12/12/2016 Adjustment disorder with mixed emotional Leighton Harding MD Onset: 2016 features Gynecologic examination Leighton Harding MD Onset: 06/13/2017 Right lower quadrant [...] Jose Medina, 01/29/2018 needed for breast M.D. 43461Pvvo/60GM Cream pain Aspirin Childrens 1 by mouth [...] CPT Code Status Date Vaccine Lot # [id number] Given 09/28/2014 Tetanus, Diphtheria Toxoids/Acellular Pertussis [id number] Vaccine 7 Or > Vital Signs Date Vital Result Comment 04/03/2018 1:59pm Weight 130.00 lb Weight 58.968 kg BMI (Body Mass Index) 27.6 kg/m2 BP Systolic 110 mmHg BP Diastolic 64 mmHg Height 57.50 inches 4'9.50" Height in cm's 146.1 cm Last Menstrual Period 2413886 8 Parity 3 03/21/2018 12:17pm Weight 129.00 lb Weight 58.514 kg BMI (Body Mass Index) 27.4 kg/m2 BP Systolic 120 mmHg BP Diastolic 70 mmHg Height 57.50 inches 4'9.50" Height in cm's 146.1 cm Last Menstrual Period 8877726 light 8 Parity 3 Results Description No Information Available Procedures Date Code Description Status 11/12/2008 67345844 Colonoscopy Completed Medical Devices Description No Information Available Encounters Type Date Location Provider Dx Diagnosis Office Visit 01/04/2020 [facility], R50.9 Fever, unspecified 1:08p [facility] Pike J02.9 Acute pharyngitis, unspecified R05 Cough Z20.828 Contact w and exposure to oth viral communicable diseases R51 Headache Office Visit 01/01/2020 1:01p [facility], [place] R30.0 Dysuria R35.0 Frequency of micturition R39.15 Urgency of urination R10.2 Pelvic and perineal pain Assessments Date Code Description Provider 01/04/2020 R50.9 Fever, unspecified Sacha Cuadra M.D. 01/04/2020 J02.9 Acute pharyngitis, unspecified Sacha Cuadra M.D. 01/04/2020 R05 Cough Sacha Cuadra M.D. 01/04/2020 Z20.828 Contact with and (suspected) exposure to Sacha Cuadra M.D. other viral communicable diseases 01/04/2020 R51 Headache Sacha Cuadra M.D. 01/01/2020 R30.0 Dysuria Janet Pflug, PA 01/01/2020 R35.0 Frequency of micturition Janet Pflug, [place] 01/01/2020 R39.15 Urgency of urination Janet Pflug, [place] 01/01/2020 R10.2 Pelvic and perineal pain Janet Pflug, [place] Plan of Treatment No Information Available Functional Status Functional Condition Comment Date Status Glasses Active Mental Status Description No Information Available Referrals Description No Information Available
[2020-01-16 10:35] VITALS: BP 154/63
--- NOTE | 2020-01-16 11:22 | UC ---
Back Pain HPI - HPI Summary HPI Summary: 34 yo female presents with back pain. She tells me that just SHANK FAKER she was at work and was bending over to move a box - twisted her lower back and felt a pull in the right lower aspect. Since that time has been 10/10 pain radiating into her right buttock and right posterior thigh. She took 400mg ibuprofen with no relief. She states she has a hx of lower back problems and has been evaluated for possible herniated disc in the past. She currently denies numbness , tingling, saddle anesthesia, dysuria, or loss of bowel/bladder control. - History of Current Complaint Chief Complaint: UCBackPain Stated Complaint: HURT BACK AT WORK Time Seen by Provider: 01/16/20 11:22 Hx Obtained From: Patient Hx Last Menstrual Period: 12/13/19 Onset/Duration: Sudden Onset Timing: Constant Severity Initially: Severe Severity Currently: Severe Pain Intensity: 7 Pain Scale Used: 0-10 Numeric - Allergies/Home Medications Allergies/Adverse Reactions: Allergies Allergy/AdvReac Type Severity Reaction Status Date / Time carbamazepine [From Tegretol] Allergy Hives Verified 01/16/20 10:30 diazepam [From Valium] Allergy unk Verified 01/16/20 10:30 latex Allergy Rash Verified 01/16/20 10:30 morphine Allergy unk Verified 01/16/20 10:30 phenytoin [From Dilantin] Allergy unk Verified 01/16/20 10:30 Home Medications: Home Medications Cyclobenzaprine TAB* [Flexeril 10 MG TAB*] 10 mg PO BID PRN #14 tab 01/16/20 [Rx ] predniSONE 10 mg TAB [Deltasone 10 MG TAB*] 10 mg PO DAILY #23 tab 01/16/20 [Rx] PMH/Surg Hx/FS Hx/Imm Hx - Additional Past Medical History Additional PMH: None - Surgical History Surgical History: Yes Surgery Procedure, Year, and Place: APPY-2001. GALLBLADDER-2005. SPHINCTER MUSCLE TO PANCREASE DILATED. TUBAL-2005. TUBAL REVERSAL-2013 - Family History Known Family History: Positive: Hypertension, Other - lupus - Social History Lives: With Family Alcohol Use: Occasionally Substance Use Type: None Smoking Status (MU): Never Smoked Tobacco Have You Smoked in the Last Year: No Review of Systems All Other Systems Reviewed And Are Negative: No Constitutional: Positive: Negative Skin: Positive: Negative Respiratory: Positive: Negative Cardiovascular: Positive: Negative Gastrointestinal: Positive: Negative Genitourinary: Positive: Negative Neurovascular: Positive: Negative Musculoskeletal: Positive: Other: - Back pain Neurological/Mental Status: Positive: Negative Psychological: Positive: Negative Physical Exam - Summary Physical Exam Summary: GENERAL: NAD. WDWN. No pain distress. SKIN: No rashes, sores, lesions, or open wounds. NECK: Supple. FROM. Nontender. No lymphadenopathy. CHEST: CTAB. No r/r/w. No accessory muscle use. Breathing comfortably and in no distress. CV: RRR. Pulses intact. Cap refill <2seconds MSK: TTP over lumbar paraspinal muscles worse on right. Pain with flexion and extension of spine. Positive SLR on right for low back pain without radiation. Strength 5/5 B/L LEs including dorsiflexion and plantar flexion. FROM B/L LEs. No edema. NEURO: Alert. Sensations intact B/L LEs L3-S1. Reflexes intact PSYCH: Age appropriate behavior. Triage Information Reviewed: Yes Vital Signs: Initial Vital Signs Temp 98 F 01/16/20 10:27 Pulse 100 01/16/20 10:27 Resp 20 01/16/20 10:27 BP 154/63 01/16/20 10:27 Pulse Ox 100 01/16/20 10:27 Vital Signs Reviewed: Yes Diagnostics - Radiology Lumbar XR Radiology Interpretation Completed By: Radiologist Summary of Radiographic Findings: IMPRESSION: No fracture of the lumbar spine is noted. Back Pain Course/Dx - Course Course Of Treatment: XR negative. In the clinic she was given norco 5/325 for her pain and reports 10/10 pain decreased to 4/10 and was more comfortable. Suspect muscle spasm/sciatica and will rx for prednisone and flexeril. Advised RICE therapy and continued ibuprofen as directed. F/u with Dr. Roa for work related injury. - Differential Dx/Diagnosis Provider Diagnosis: Back pain Discharge ED - Sign-Out/Discharge Documenting (check all that apply): Patient Departure All imaging exams completed and their final reports reviewed: Yes - Discharge Plan Condition: Stable Disposition: HOME Prescriptions: Cyclobenzaprine TAB* [Flexeril 10 MG TAB*] 10 mg PO BID PRN #14 tab PRN Reason: Spasms predniSONE 10 mg TAB [Deltasone 10 MG TAB*] 10 mg PO DAILY #23 tab Patient Education Materials: Sciatica (ED), Lower Back Exercises (ED) Forms: *Work Release Referrals: Tray aCrrillo NP [Primary Care Provider] - Romario Roa MD [Medical Doctor] - As Soon As Possible Additional Instructions: If you develop a fever, shortness of breath, chest pain, new or worsening symptoms - please call your PCP or go to the ED immediately. Your blood pressure was high at todays visit. Please see your primary provider within 4 weeks for recheck and re-evaluation. 1) Rest and apply ice/heat to your back to decrease pain 2) Practice gentle range of motion exercises 3) Continue your motrin as directed 4) I recommend that you call Dr. Roa (Worker's Comp) at the number below to schedule an appointment for a recheck as soon as possible regarding your work related injury - Billing Disposition and Condition Condition: STABLE Disposition: Home
[2020-01-16] MEDS ORDERED: HYDROcodone/ACETAMIN 5-325 MG* 1 TAB PO ONE (11:31)
[2020-01-16] MEDS ORDERED: Ondansetron ODT TAB* 4 MG SL ONE (11:37)
== END 2020-01-16 12:58 | disposition home or self-care (01) ==
LOC: UCEAST 10:21
DX: M54.5 Low back pain (principal); Z88.5 Allergy status to narcotic agent; Z88.8 Allergy status to other drugs, medicaments and biological substances; Z91.040 Latex allergy status; X50.1XXA Overexertion from prolonged static or awkward postures, initial encounter; Y93.89 Activity, other specified; Y92.9 Unspecified place or not applicable; Y99.0 Civilian activity done for income or pay
CPT/HCPCS: 72110; 99212; A9270-GY; G0463